=== PATIENT | male | born 1980 | race African-American/Black ===

== ENCOUNTER 2016-12-18 19:34 | Inpatient (IN) | payer OTHER ==
[~2016-12-18] VITALS: Ht 177.8 cm; Wt 97.5 kg
[2016-12-18] MEDS ORDERED: NKM (19:42)
--- NOTE | 2016-12-18 19:59 | Emergency Room Report ---
History of Present Illness General Chief Complaint: Constipation Source: Patient Present Illness HPI Patient presents with complaints of rectal pain and be unable to move his bowels for 5 days. He states he feels a bump near his rectum. He's had chills. The no documented fever but feels chills. He was straining a week ago to move his bowels. He started having the discomfort the day after which was 6 days ago. Pain has been 10/10, constant, not radiate. Makes it difficult to ambulate. Passed some blood per rectum = minimal. No dysuria. No URI sy, chest pain, SOB, rashes, joint pain, depression. Allergies: Coded Allergies: No Known Allergies (Unverified , 12/18/16) Patient History Past Medical History: see triage record Social History: Reports: smoking Social History Narrative working Reviewed Nursing Documentation: PMH: Agreed, PSxH: Agreed Nursing Documentation-PMH Past Medical History: No Stated History Review of Systems All Other Systems: negative except mentioned in HPI Physical Exam Vital Signs Date Time Temp Pulse Resp B/P Pulse Ox O2 Delivery O2 Flow Rate FiO2 12/18/16 19:39 98.2 100 18 147/82 96 Room Air Sp02 EP Interpretation: reviewed, normal General Appearance: well appearing, GCS 15, mild distress Head: normocephalic Eyes: bilateral eye PERRL, bilateral eye normal inspection ENT: moist mucus membranes Neck: supple Respiratory: lungs clear, normal breath sounds Cardiovascular #1: regular rate, rhythm Cardiovascular #2: 2+ radial (R) Gastrointestinal: normal inspection, normal bowel sounds, non tender, soft, no mass, non-distended Rectal: heme negative stool, other - fluctuant mass on side of rectum with some erythema - possible cyst Musculoskeletal: back normal, gait/station normal - walks with pain, normal range of motion Neurologic: alert, oriented x3, grossly normal Psychiatric: mood/affect normal Skin: normal inspection, warm/dry, other - tattoos and perirectal erythema Medical Decision Making Diagnostic Impression: Primary Impression: Perirectal abscess Additional Impressions: Polycythemia Hypokalemia Dehydration ER Course The patient presents with rectal pain and constipation. Differential includes hemorrhoids, constipation, rectal fissure, perirectal abscess amongst others. Evaluation will be with labs and CT the abdomen and pelvis. Patient will be treated with Toradol and also a antibiotics will be started. Labs significant for polycythemia, elevated C reactive protein. Call to Dr. Rae. Admit med Dr. West. Pain improved and able to move bowels scant amount. Laboratory Tests Test 12/18/16 20:08 White Blood Count 9.9 K/UL (4.8-10.8) Red Blood Count 5.70 M/UL (4.70-6.10) Hemoglobin 18.8 G/DL (14.2-18.0) *H Hematocrit 51.2 % (42.0-52.0) Mean Corpuscular Volume 90 FL (80-99) Mean Corpuscular Hemoglobin 33.0 PG (27.0-31.0) H Mean Corpuscular Hemoglobin Concent 36.7 G/DL (32.0-36.0) H Red Cell Distribution Width 11.5 % (11.6-14.8) L Platelet Count 206 K/UL (150-450) Mean Platelet Volume 9.6 FL (6.5-10.1) Neutrophils (%) (Auto) 64.7 % (45.0-75.0) Lymphocytes (%) (Auto) 26.7 % (20.0-45.0) Monocytes (%) (Auto) 6.4 % (1.0-10.0) Eosinophils (%) (Auto) 0.7 % (0.0-3.0) Basophils (%) (Auto) 1.4 % (0.0-2.0) Erythrocyte Sedimentation Rate 15 MM/HR (0-15) Prothrombin Time 11.0 SEC (9.30-11.50) Prothrombin Time INR 1.1 (0.9-1.1) PTT 26 SEC (23-33) Urine Color Yellow Urine Appearance Clear Urine pH 6.5 (4.5-8.0) Urine Specific [place] 1.015 (1.005-1.035) Urine Protein 2+ (NEGATIVE) H Urine Glucose (UA) Negative (NEGATIVE) Urine Ketones 4+ (NEGATIVE) H Urine Occult Blood 1+ (NEGATIVE) H Urine Nitrite Negative (NEGATIVE) Urine Bilirubin Negative (NEGATIVE) Urine Urobilinogen 1 MG/DL (0.0-1.0) H Urine Leukocyte Esterase Negative (NEGATIVE) Urine RBC 2-4 /HPF (0 - 0) H Urine WBC 2-4 /HPF (0 - 0) Urine Squamous Epithelial Cells None /LPF (NONE/OCC) Urine Bacteria Occasional /HPF (NONE) Sodium Level 138 mEQ/L (135-145) Potassium Level 3.0 mEQ/L (3.4-4.9) L Chloride Level 97 mEQ/L (98-107) L Carbon Dioxide Level 22 mEQ/L (20-30) Anion Gap 19 (5-15) H Blood Urea Nitrogen 9 mg/dL (7-23) Creatinine 1.2 mg/dL (0.7-1.2) Estimate Glomerular Filtration Rate > 60 mL/min (>60) Glucose Level 108 mg/dL (74-106) H Lactic Acid Level 1.40 mmol/L (0.66-2.22) Calcium Level 9.6 mg/dL (8.6-10.2) Total Bilirubin 0.4 mg/dL (0.0-1.2) Aspartate Amino Transferase (AST) 63 U/L (5-40) H Alanine Aminotransferase (ALT) 61 U/L (3-41) H Alkaline Phosphatase 74 U/L (40-129) C-Reactive Protein, Quantitative 1.9 mg/dL (< 0.5) H Total Protein 7.8 g/dL (6.6-8.7) Albumin 4.3 g/dL (3.5-5.2) Globulin 3.5 g/dL Albumin/Globulin Ratio 1.2 (1.0-2.7) Lipase 29 U/L (< 60) CT/MRI/US Diagnostic Results CT/MRI/US Diagnostic Results : Imaging Test Ordered: abd pelvis Impression Impression: No acute findings identified within the abdomen. Normal appendix. Apparent disc herniation at L4-5. MRI may be obtained as warranted clinically. Last Vital Signs Date Time Temp Pulse Resp B/P Pulse Ox O2 Delivery O2 Flow Rate FiO2 12/18/16 19:39 98.2 100 18 147/82 96 Room Air Status: improved Disposition: ADMITTED INPATIENT Condition: Serious Jamaal Crenshaw M.D. December 18, 2016 19:58
[2016-12-18] MEDS ORDERED: Ketorolac 30mg Inj IV ONE (20:00)
[2016-12-18] MEDS ORDERED: Lidocaine HCl 2% Jelly 5ml Tube TOPIC ONE (20:00)
[2016-12-18 20:25] LABS: BASOPHILS % (AUTO) 1.4 % (0.0-2.0); EOSINOPHILS % (AUTO) 0.7 % (0.0-3.0); LYMPHOCYTES % (AUTO) 26.7 % (20.0-45.0); MEAN CORPUSCULAR HGB CONC 36.7 G/DL (32.0-36.0); MEAN CORPUSCULAR VOLUME 90 FL (80-99); MEAN PLATELET VOLUME 9.6 FL (6.5-10.1); MONOCYTES % (AUTO) 6.4 % (1.0-10.0); NEUTROPHILS % (AUTO) 64.7 % (45.0-75.0); PLATELET COUNT 206 K/UL (150-450); RED CELL DISTRIBUTION WIDTH 11.5 % (11.6-14.8); WHITE BLOOD COUNT 9.9 K/UL (4.8-10.8)
[2016-12-18 20:28] LABS: APPEARANCE,URINE CLEAR; KETONES,URINE 4+ (NEGATIVE); LEUKOCYTE ESTERASE ,URINE NEGATIVE (NEGATIVE); NITRITE,URINE NEGATIVE (NEGATIVE); PH,URINE 6.5 (4.5-8.0); PROTEIN,URINE 2+ (NEGATIVE); UROBILINOGEN,URINE 1 MG/DL (0.0-1.0)
[2016-12-18 20:39] LABS: INR 1.1 (0.9-1.1)
[2016-12-18 20:42] LABS: ALANINE AMINOTRANSFERASE 61 U/L (3-41); ALBUMIN/GLOBULIN RATIO 1.2 (1.0-2.7); ANION GAP 19 (5-15); ASPARTATE AMINO TRANSFERASE 63 U/L (5-40); CALCIUM 9.6 mg/dL (8.6-10.2); CARBON DIOXIDE 22 mEQ/L (20-30); CHLORIDE 97 mEQ/L (98-107); CREATININE 1.2 mg/dL (0.7-1.2); GLOMERULAR FILTRATION RATE > 60 mL/min (>60); HEMOLYSIS 0; LIPASE 29 U/L (< 60); SODIUM 138 mEQ/L (135-145); TOTAL PROTEIN 7.8 g/dL (6.6-8.7)
[2016-12-18 20:59] LABS: BACTERIA,URINE OCCASIONAL /HPF
[2016-12-18 21:16] VITALS: BP 146/84
[2016-12-18] MEDS ORDERED: Vancomycin 1.5 GM in D5W 325 ML IVPB STA (21:34)
[2016-12-18 21:40] LABS: ERYTHROCYTE SEDIMENTATION RATE 15 MM/HR (0-15)
[2016-12-18] MEDS ORDERED: Cefepime 1gm vial ONE (21:43)
[2016-12-18] MEDS ORDERED: metroNIDAZOLE 500mg 100 ML IVPB ONE (21:45)
[2016-12-18] MEDS ORDERED: Cefepime HCl 1 GM in D5W 55 ML IVPB ONE (21:45)
[2016-12-18] MEDS ORDERED: Nitroglycerin Subl 0.4mg tab (Bottle Of 25) SL PRN (22:00)
[2016-12-18] MEDS ORDERED: Miralax 17gm pkt ORAL PRN (22:00)
[2016-12-18] MEDS ORDERED: DuoNeb 0.5-3(2.5)mg/3ml neb HHN PRN (22:00)
[2016-12-18] MEDS ORDERED: Vancomycin 1.5gm/D5W 300ml 325 ML IVPB ONE (22:30)
[2016-12-18] MEDS ORDERED: KCl 10% 40mEq/30ml liquid ORAL STA (22:31)
[2016-12-19] VITALS (14 sets, daily range): BP systolic 115–154; BP diastolic 68–92
[2016-12-19] MEDS: Morphine Sulfate 2mg/ml Inj IVP PRN ×3 (04:10→20:37)
[2016-12-19 07:14] LABS: BASOPHILS % (AUTO) 1.1 % (0.0-2.0); EOSINOPHILS % (AUTO) 1.5 % (0.0-3.0); LYMPHOCYTES % (AUTO) 25.8 % (20.0-45.0); MEAN CORPUSCULAR HEMOGLOBIN 30.7 PG (27.0-31.0); MEAN CORPUSCULAR HGB CONC 34.2 G/DL (32.0-36.0); MEAN CORPUSCULAR VOLUME 90 FL (80-99); MEAN PLATELET VOLUME 10.2 FL (6.5-10.1); MONOCYTES % (AUTO) 9.8 % (1.0-10.0); NEUTROPHILS % (AUTO) 61.8 % (45.0-75.0); PLATELET COUNT 191 K/UL (150-450); RED BLOOD COUNT 4.85 M/UL (4.70-6.10); RED CELL DISTRIBUTION WIDTH 11.7 % (11.6-14.8); WHITE BLOOD COUNT 6.8 K/UL (4.8-10.8)
[2016-12-19 07:23] LABS: ALANINE AMINOTRANSFERASE 55 U/L (3-41); ALBUMIN/GLOBULIN RATIO 1.1 (1.0-2.7); ANION GAP 15 (5-15); ASPARTATE AMINO TRANSFERASE 52 U/L (5-40); CALCIUM 8.5 mg/dL (8.6-10.2); CARBON DIOXIDE 21 mEQ/L (20-30); CHLORIDE 104 mEQ/L (98-107); CREATININE 1.1 mg/dL (0.7-1.2); GLOMERULAR FILTRATION RATE > 60 mL/min (>60); HEMOLYSIS 2; POTASSIUM 3.5 mEQ/L (3.4-4.9); SODIUM 140 mEQ/L (135-145); TOTAL PROTEIN 6.1 g/dL (6.6-8.7)
[2016-12-19] MEDS ORDERED: Vancomycin 1.5 GM in D5W 325 ML IVPB SCH (09:00)
[2016-12-19] MEDS ORDERED: Cefepime HCl 2 GM in D5W 110 ML IV SCH (09:00)
[2016-12-19] MEDS: Heparin 5000 units/ml inj SUBQ SCH ×2 (09:18→21:36)
--- NOTE | 2016-12-19 10:36 | Pre-Procedure Note/Attestation ---
Pre-Procedure Note/Attestation Complete Prior to Procedure Planned Procedure: not applicable Procedure Narrative: I & D of perirectal abscess Indications for Procedure Pre-Operative Diagnosis: Perirectal abscess Attestation I attest that I discussed the nature of the procedure; its benefits; risks and complications; and alternatives (and the risks and benefits of such alternatives ), prior to the procedure, with the patient (or the patient's legal inbound sales representative). I attest that, if there was a reasonable possibility of needing a blood transfusion, the patient (or the patient's legal inbound sales representative) was given the [facility] standardized written summary, pursuant to the [place] Blood Safety Act ([place] Health and Safety Code # 1645, as amended). I attest that I re-evaluated the patient just prior to the surgery and that there has been no change in the patient's H&P, except as documented below: JAVID RAY December 19, 2016 10:36
--- NOTE | 2016-12-19 12:09 | Diagnostic Imaging Report ---
Indication: Abdominal pain Technique: Continuous helical transaxial imaging of the abdomen and pelvis was obtained from the lung bases to the pubic symphysis during intravenous contrast administration. Coronal 2-D reformats were also obtained. Study obtained in a Siemens sensation [address] Total Dose length Product (DLP): [address] Dose Index Volume (CTDIvol): 18 mGy Comparison: None Findings: There is trace right pleural fluid demonstrated. The appendix is seen and appears normal. Small bowel is nondilated. Solid organs appear normal. There is no hydronephrosis. No free fluid or free air identified. Disc bulge or protrusion suspected at L4-5. MR may be obtained as warranted clinically. Impression: No acute findings identified within the abdomen. Normal appendix. Apparent disc herniation at L4-5. MRI may be obtained as warranted clinically. The CT scanner at [facility] is accredited by the [employer] and the scans are performed using protocols designed to limit radiation exposure to as low as reasonably achievable to attain images of sufficient resolution adequate for diagnostic evaluation.
--- NOTE | 2016-12-19 12:38 | Anethesia Preoperative Eval ---
Anesthesia Pre-op PMH/ROS General Date of Evaluation: December 19, 2016 Time of Evaluation: 12:35 Anesthesiologist: Kota ASA Score: ASA 2 Mallampati Score Class I : Soft palate, uvula, fauces, pillars visible Class II: Soft palate, uvula, fauces visible Class III: Soft palate, base of uvula visible Class IV: Only hard plate visible Mallampati Classification: Class II Surgeon: Kyra Diagnosis: Perirectal abscess Surgical Procedure: I&D of perirectal abscess Anesthesia History: none Social History: current smoker Family History: no anesthesia problems Allergies: Coded Allergies: No Known Allergies (Unverified , 12/18/16) Medications: see eMAR Past Medical History Cardiovascular: Denies: CAD, HTN, AL, arrhythmia, other, valve dz Pulmonary: Denies: COPD, HODA, asthma, other Gastrointestinal/Genitourinary: Reports: GERD - mild, Denies: CRI, ESRD, other Neurologic/Psychiatric: Denies: CVA, TIA, dementia, depression/anxiety, other Endocrine: Denies: DM, hypothyroidism, other, steroids HEENT: Denies: [place] (L), [place] (R), cataract (L), cataract (R), glaucoma, other Hematology/Immune: Denies: DVT, anemia, bleeding disorder, other Musculoskeletal/Integumentary: Denies: DDD, DJD, OA, RA, edema, other PMH Narrative: as above PSxH Narrative: None Anesthesia Pre-op Phys. Exam Physician Exam Last Vital Signs Date Time Temp Pulse Resp B/P Pulse Ox O2 Delivery O2 Flow Rate FiO2 12/19/16 11:37 97.9 65 19 128/83 96 Room Air 12/19/16 09:21 21 Constitutional: NAD Neurologic: CN 2-12 intact Cardiovascular: RRR, no M/R/G Respiratory: CTA Gastrointestinal: S/NT/ND Airway Exam MO: full Neck: flexible ROM: full Teeth: intact Dentures: no lower, no upper Anesthesia Pre-op A/P Labs Hematology Test 12/18/16 20:08 12/19/16 05:50 White Blood Count 9.9 K/UL (4.8-10.8) 6.8 K/UL (4.8-10.8) Red Blood Count 5.70 M/UL (4.70-6.10) 4.85 M/UL (4.70-6.10) Hemoglobin 18.8 G/DL (14.2-18.0) *H 14.9 G/DL (14.2-18.0) Hematocrit 51.2 % (42.0-52.0) 43.5 % (42.0-52.0) Mean Corpuscular Volume 90 FL (80-99) 90 FL (80-99) Mean Corpuscular Hemoglobin 33.0 PG (27.0-31.0) H 30.7 PG (27.0-31.0) Mean Corpuscular Hemoglobin Concent 36.7 G/DL (32.0-36.0) H 34.2 G/DL (32.0-36.0) Red Cell Distribution Width 11.5 % (11.6-14.8) L 11.7 % (11.6-14.8) Platelet Count 206 K/UL (150-450) 191 K/UL (150-450) Mean Platelet Volume 9.6 FL (6.5-10.1) 10.2 FL (6.5-10.1) H Neutrophils (%) (Auto) 64.7 % (45.0-75.0) 61.8 % (45.0-75.0) Lymphocytes (%) (Auto) 26.7 % (20.0-45.0) 25.8 % (20.0-45.0) Monocytes (%) (Auto) 6.4 % (1.0-10.0) 9.8 % (1.0-10.0) Eosinophils (%) (Auto) 0.7 % (0.0-3.0) 1.5 % (0.0-3.0) Basophils (%) (Auto) 1.4 % (0.0-2.0) 1.1 % (0.0-2.0) Erythrocyte Sedimentation Rate 15 MM/HR (0-15) Coagulation Test 12/18/16 20:08 Prothrombin Time 11.0 SEC (9.30-11.50) Prothromb Time International Ratio 1.1 (0.9-1.1) Activated Partial Thromboplast Time 26 SEC (23-33) Chemistry Test 12/18/16 20:08 12/19/16 05:50 Sodium Level 138 mEQ/L (135-145) 140 mEQ/L (135-145) Potassium Level 3.0 mEQ/L (3.4-4.9) L 3.5 mEQ/L (3.4-4.9) Chloride Level 97 mEQ/L (98-107) L 104 mEQ/L (98-107) Carbon Dioxide Level 22 mEQ/L (20-30) 21 mEQ/L (20-30) Anion Gap 19 (5-15) H 15 (5-15) Blood Urea Nitrogen 9 mg/dL (7-23) 9 mg/dL (7-23) Creatinine 1.2 mg/dL (0.7-1.2) 1.1 mg/dL (0.7-1.2) Estimat Glomerular Filtration Rate > 60 mL/min (>60) > 60 mL/min (>60) Glucose Level 108 mg/dL (74-106) H 94 mg/dL (74-106) Lactic Acid Level 1.40 mmol/L (0.66-2.22) Calcium Level 9.6 mg/dL (8.6-10.2) 8.5 mg/dL (8.6-10.2) L Total Bilirubin 0.4 mg/dL (0.0-1.2) 0.3 mg/dL (0.0-1.2) Aspartate Amino Transf (AST/SGOT) 63 U/L (5-40) H 52 U/L (5-40) H Alanine Aminotransferase (ALT/SGPT) 61 U/L (3-41) H 55 U/L (3-41) H Alkaline Phosphatase 74 U/L (40-129) 65 U/L (40-129) C-Reactive Protein, Quantitative 1.9 mg/dL (< 0.5) H Total Protein 7.8 g/dL (6.6-8.7) 6.1 g/dL (6.6-8.7) L Albumin 4.3 g/dL (3.5-5.2) 3.3 g/dL (3.5-5.2) L Globulin 3.5 g/dL 2.8 g/dL Albumin/Globulin Ratio 1.2 (1.0-2.7) 1.1 (1.0-2.7) Lipase 29 U/L (< 60) Risk Assessment & Plan Assessment: ASA 2 Plan: GA with LMA Status Change Before Surgery: No Pre-Antibiotics Drug: Ancef 2gr. Given Within 1 Hr of Incision: Yes Time Given: 12:38 SEMAJ SON M.D. December 19, 2016 12:38
[2016-12-19] MEDS ORDERED: Propofol 10mg/ml 20ml IV ONE ×2 (12:43→12:45)
[2016-12-19] MEDS ORDERED: NS Irrig 1000ml ONE (12:45)
[2016-12-19] MEDS ORDERED: Midazolam 2mg/2ml Inj ONE (12:45)
[2016-12-19] MEDS ORDERED: fentaNYL 100 mcg/2 mL IV ONE (12:45)
[2016-12-19] MEDS ORDERED: LR 1000ml ONE (12:45)
[2016-12-19] MEDS ORDERED: Ketorolac 30mg Inj ONE (12:45)
[2016-12-19] MEDS ORDERED: Sterile Water Irrig 1000ml IRRIG ONE (12:45)
[2016-12-19] MEDS ORDERED: Bupivacaine w/Epi 0.25% 30ml Vial INJ ONE (13:13)
[2016-12-19] MEDS ORDERED: NS Irrig 1000ml IRRIG ONE (13:16)
--- NOTE | 2016-12-19 13:22 | Brief Operative Note ---
Immediate Post Operative Note Operative Note Pre-op Diagnosis: Perirectal abscess Post-op Diagnosis: moira-rectal abscess with fistula Findings: consistent w/pre-op dx studies Surgeon: MD Kayleigh Power Ballast Machine Operator: none Anesthesiologist: Dr. Escudero Anesthesia: general Specimen: none Complications: none Condition: stable Estimated Blood Loss: minimal Drains: other - xeroform Implant(s) used?: No JAVID RAY December 19, 2016 13:22
[2016-12-19] MEDS ORDERED: Meperidine 25mg/0.5ml Inj ONE (13:31)
[2016-12-19] MEDS ORDERED: LR 1000ml 1,000 ML IVLG SCH (13:40)
[2016-12-19] MEDS ORDERED: Midazolam 2mg/2ml Inj IVP PRN (13:45)
[2016-12-19] MEDS ORDERED: Meperidine 25mg/0.5ml Inj IV PRN (13:45)
[2016-12-19] MEDS ORDERED: DiphenhydrAMINE 50mg/ml Inj IVP PRN (13:45)
[2016-12-19] MEDS ORDERED: Hydromorphone 0.5mg/0.5ml inj IVP PRN (13:45)
[2016-12-19] MEDS ORDERED: Ketorolac 30mg Inj IV PRN (13:45)
--- NOTE | 2016-12-19 13:46 | Immediate Post-Op Evaluation ---
Immediate Post-Op Evalulation Immediate Post-Op Evalulation Procedure: I&D perirectal abscess Date of Evaluation: December 19, 2016 Time of Evaluation: 13:44 IV Fluids: 600 Blood Products: none Estimated Blood Loss: min Urinary Output: none Blood Pressure Systolic: 132 Blood Pressure Diastolic: 74 Pulse Rate: 78 Respiratory Rate: 20 O2 Sat by Pulse Oximetry: 98 Temperature (Fahrenheit): 97.4 Pain Score (1-10): 2 Nausea: No Vomiting: No Complications none Patient Status: awake, patent, none Hydration Status: adequate SEMAJ SON M.D. December 19, 2016 13:46
--- NOTE | 2016-12-19 13:47 | 48 Hour Post Anesthesia Eval ---
Post Anesthesia Evaluation Procedure: I&D perirectal abscess Date of Evaluation: December 19, 2016 Time of Evaluation: 15:30 Blood Pressure Systolic: 128 0: 76 Pulse Rate: 82 Respiratory Rate: 20 Temperature (Fahrenheit): 97.6 O2 Sat by Pulse Oximetry: 98 Airway: patent Nausea: No Vomiting: No Pain Intensity: 2 Hydration Status: adequate Cardiopulmonary Status: stable Mental Status/LOC: patient returned to baseline Follow-up Care/Observations: n/a Post-Anesthesia Complications: none Follow-up care needed: N/A SEMAJ SON M.D. December 19, 2016 13:47
[2016-12-19] MEDS ORDERED: D5 1/2NS w/KCl 20mEq 1,000 ML IV SCH (14:00)
[2016-12-19] MEDS ORDERED: Norco 5mg/325mg tab ORAL PRN (14:00)
[2016-12-19] MEDS: Piperacillin/Tazobactam 3.375 GM in D5W 110 ML IVPB SCH ×2 (14:57→21:36)
--- NOTE | 2016-12-19 16:08 | Pre-op HX & Phy Repo 2 SIG ---
DATE OF ADMISSION: 12/18/2016 REQUESTING PHYSICIAN: Ermelinda West M.D. REASON FOR CONSULTATION: Pain and swelling at the perirectal area. HISTORY OF PRESENT ILLNESS: This is a 36-year-old male, who presented to emergency room complaining of pain and swelling at the left side of the rectum for about one week. He stated that it has gradually increased and that he has been having pain with bowel movement. Apparently last night, it has spontaneously drained. He denies any fever or chills. He denied diabetes. PAST MEDICAL HISTORY: He denies allergies, asthma, diabetes, hypertension, and cardiac or renal diseases. PAST SURGICAL HISTORY: None. MEDICATIONS: None. SOCIAL HISTORY: This is a 36-year-old male, who is single with three children. He is unemployed and smokes one pack of cigarettes a day and drinks occasionally. REVIEW OF SYSTEMS: Noncontributory. PHYSICAL EXAMINATION: GENERAL: The patient appeared to be well developed and well nourished, 36-year-old male, in no acute distress. HEENT: Head is normocephalic and atraumatic. Eyes, pupils are equal, round, and reactive to light. Mouth is clear. NECK: There is no palpable thyromegaly or adenopathy. CHEST: Clear to auscultation and percussion. HEART: There is no gallop or murmur. S1 and S2 are within normal limits. ABDOMEN: Soft, flat, and nontender. EXTREMITIES: Within normal limits. PERINEUM: He has perirectal abscess on the left posterior to the anus. ASSESSMENT: Perirectal abscess. PLAN: The patient has been scheduled for incision and drainage of the perirectal abscess. The risks and benefits have been explained to him, especially that he has been notified that he will have a large wound next to his anus, which he had to take care of it till it closes. Besides, he has been notified about the chance of the [id number]. He understood and granted consent. Lilian Rae M.D. DR: JT JOB#: [id number] CC: SHAINA
[2016-12-19] MEDS: Docusate 100mg cap ORAL SCH (17:43)
--- NOTE | 2016-12-19 20:08 | Operative Note - Dictated ---
DATE OF OPERATION: 12/19/2016 PREOPERATIVE DIAGNOSIS: Perirectal abscess. POSTOPERATIVE DIAGNOSIS: Perirectal abscess with fistula. OPERATION: Incision and drainage of the abscess and fistulotomy. COMPLICATIONS: None. SURGEON: Lilian Rae M.D. WATERSHED ENGINEER: None. ANESTHESIA: General with laryngeal mask. ANESTHESIOLOGIST: Jefferson Escudero M.D. INDICATION: This is a 36-year-old male who presented with pain and swelling at the perirectal area for about six to seven days. He stated that last night he noticed some drainage on his underwear and the pain improved. Physical examination showed perirectal abscess, left and posterior to the anus. DESCRIPTION OF PROCEDURE: The patient was placed supine on the operating table and after general anesthesia with laryngeal mask, he was placed in the lithotomy position and the perineum was properly prepped and draped. Exploration of the perineum was performed which showed a perirectal abscess which did not seem to contain any pus. Abscess was incised and exploration was performed. The abscess had the large cavity under the skin and there was a connection from this cavity to the inside of the anal canal. The cavity was unroofed and the patient already had the fistula. The fistulotomy was performed too. The bleeding points were controlled and the area was irrigated with normal saline. Xeroform was placed in the anal canal and was brought out from the anus. The anus was blocked with infiltration of 5 mL of Marcaine in each quarter of the perirectal area. The patient tolerated the procedure very well and was transferred to recovery room in stable condition and extubated. The sponge and needle count correct. Estimated blood loss was about 5 mL. Condition of the patient at the end of procedure is stable. Lilian Rae M.D. DR: Paula JOB#: [id number] CC:
[2016-12-19] MEDS ORDERED: Zolpidem 5mg tab ORAL PRN (21:00)
--- NOTE | 2016-12-19 22:05 | History and Physical ---
History of Present Illness General Date patient seen: December 19, 2016 Reason for Hospitalization: Constipation Present Illness Allergies: Coded Allergies: No Known Allergies (Unverified , 12/18/16) Medication History Scheduled No Known Medications* (NKM - No Known Medications*), 0 ., (Reported) Patient History Healthcare decision maker NONE Resuscitation status Full Code Advanced Directive on File Physical Exam Last 24 Hour Vital Signs Date Time Temp Pulse Resp B/P Pulse Ox O2 Delivery O2 Flow Rate FiO2 12/19/16 20:00 98.1 69 20 129/76 96 Room Air 12/19/16 15:52 98.2 59 19 143/68 97 Room Air 12/19/16 14:57 62 19 138/89 99 Room Air 12/19/16 14:42 97.2 52 18 136/76 100 Room Air 12/19/16 14:30 97.0 77 18 135/83 98 Room Air 12/19/16 14:23 97.0 12/19/16 14:19 97.0 12/19/16 14:15 76 19 154/85 98 Room Air 12/19/16 14:03 75 19 133/88 98 Room Air 12/19/16 13:53 74 18 115/72 98 Room Air 12/19/16 13:47 82 20 98 12/19/16 13:46 78 20 98 12/19/16 13:43 75 17 133/68 99 Simple Mask 6.0 12/19/16 13:38 80 17 132/75 99 Simple Mask 6.0 12/19/16 13:33 97.0 84 18 132/89 99 Simple Mask 6.0 12/19/16 11:37 97.9 65 19 128/83 96 Room Air 12/19/16 09:46 97.7 12/19/16 09:21 97 Room Air 21 12/19/16 08:15 97.7 63 19 137/80 97 Room Air 12/19/16 04:00 97.9 59 20 137/92 96 Room Air 12/18/16 22:52 98.2 59 14 146/84 98 Room Air Intake and Output 12/18/16 12/19/16 19:00 07:00 Intake Total 2500 ml Balance 2500 ml IV Total 2500 ml # Voids 3 Laboratory Tests Test 12/19/16 05:50 White Blood Count 6.8 K/UL (4.8-10.8) Red Blood Count 4.85 M/UL (4.70-6.10) Hemoglobin 14.9 G/DL (14.2-18.0) Hematocrit 43.5 % (42.0-52.0) Mean Corpuscular Volume 90 FL (80-99) Mean Corpuscular Hemoglobin 30.7 PG (27.0-31.0) Mean Corpuscular Hemoglobin Concent 34.2 G/DL (32.0-36.0) Red Cell Distribution Width 11.7 % (11.6-14.8) Platelet Count 191 K/UL (150-450) Mean Platelet Volume 10.2 FL (6.5-10.1) H Neutrophils (%) (Auto) 61.8 % (45.0-75.0) Lymphocytes (%) (Auto) 25.8 % (20.0-45.0) Monocytes (%) (Auto) 9.8 % (1.0-10.0) Eosinophils (%) (Auto) 1.5 % (0.0-3.0) Basophils (%) (Auto) 1.1 % (0.0-2.0) Sodium Level 140 mEQ/L (135-145) Potassium Level 3.5 mEQ/L (3.4-4.9) Chloride Level 104 mEQ/L (98-107) Carbon Dioxide Level 21 mEQ/L (20-30) Anion Gap 15 (5-15) Blood Urea Nitrogen 9 mg/dL (7-23) Creatinine 1.1 mg/dL (0.7-1.2) Estimat Glomerular Filtration Rate > 60 mL/min (>60) Glucose Level 94 mg/dL (74-106) Calcium Level 8.5 mg/dL (8.6-10.2) L Total Bilirubin 0.3 mg/dL (0.0-1.2) Aspartate Amino Transf (AST/SGOT) 52 U/L (5-40) H Alanine Aminotransferase (ALT/SGPT) 55 U/L (3-41) H Alkaline Phosphatase 65 U/L (40-129) Total Protein 6.1 g/dL (6.6-8.7) L Albumin 3.3 g/dL (3.5-5.2) L Globulin 2.8 g/dL Albumin/Globulin Ratio 1.1 (1.0-2.7) Height (Feet): 5 Height (Inches): 10.00 Weight (Pounds): 215 Medications Current Medications Medications (Trade) Dose Ordered Sig/Flaco Route PRN Reason Start Time Stop Time Status Last Admin Dose Admin Acetaminophen (Tylenol) 650 mg Q4H PRN ORAL T>100.5 12/18/16 22:00 01/17/17 21:59 Acetaminophen (Tylenol) 650 mg Q6H PRN ORAL Mild Pain (Pain Scale 1-3) 12/19/16 14:00 01/18/17 13:59 Acetaminophen/ Hydrocodone Bitart ([place] 5/325) 1 tab Q4H PRN ORAL Moderate Pain (Pain Scale 4-6) 12/19/16 14:00 12/26/16 13:59 Albuterol/ Ipratropium (DuoNeb 0.5-3(2.5)mg/3ml) 3 ml Q4H PRN HHN Shortness of Breath 12/18/16 22:00 12/23/16 21:59 Dextrose/ Electrolytes (D5 0.45%NS W/ KCl 20mEq) 1,000 ml @ 0 mls/hr Q0M IV 12/19/16 14:00 01/18/17 13:59 Docusate Sodium (Colace) 100 mg TWICE A DAY ORAL 12/19/16 18:00 01/18/17 17:59 12/19/16 17:43 Heparin Sodium (Porcine) (Heparin 5000 units/ml) 5,000 units EVERY 12 HOURS SUBQ 12/19/16 09:00 01/18/17 08:59 12/19/16 21:36 Morphine Sulfate (Morphine Sulfate) 2 mg Q4H PRN IVP Moderate Pain (Pain Scale 4-6) 12/18/16 22:00 12/25/16 21:59 12/19/16 20:37 Nitroglycerin 0.4 mg 0.4 mg Q5MIN X 3 DOSES PRN SL Prn Chest Pain 12/18/16 22:00 01/17/17 21:59 Ondansetron HCl (Zofran) 4 mg Q6H PRN IVP Nausea & Vomiting 12/19/16 14:00 01/18/17 13:59 Piperacillin Sod/ Tazobactam Sod/ Dextrose (Zosyn/D5W) 110 ml @ 27.5 mls/hr EVERY 8 HOURS IVPB 12/19/16 14:00 12/24/16 13:59 12/19/16 21:36 Polyethylene Glycol (Miralax) 17 gm DAILYPRN PRN ORAL Constipation 12/18/16 22:00 01/17/17 21:59 Temazepam (Restoril) 15 mg HSPRN PRN ORAL Insomnia 12/18/16 22:00 12/25/16 21:59 Zolpidem Tartrate 5 mg 5 mg DAILYPRN PRN ORAL Insomnia 12/19/16 21:00 01/18/17 20:59 CARLOS BONILLA December 19, 2016 22:05
[2016-12-20] VITALS: BP 129/84
[2016-12-20 04:00] VITALS: BP 133/82
[2016-12-20] MEDS: Morphine Sulfate 2mg/ml Inj IVP PRN ×3 (04:20→13:27)
[2016-12-20] MEDS: Piperacillin/Tazobactam 3.375 GM in D5W 110 ML IVPB SCH ×2 (06:10→13:26)
[2016-12-20 07:42] VITALS: BP 121/55
[2016-12-20] MEDS: Docusate 100mg cap ORAL SCH ×2 (08:53→17:44)
[2016-12-20] MEDS: Heparin 5000 units/ml inj SUBQ SCH (08:55)
[2016-12-20 11:29] VITALS: BP 152/86
--- NOTE | 2016-12-20 15:38 | General Surgery Progress Note ---
General Surgery-Progress Note Subjective Symptoms: improved Objective Last 24 Hour Vital Signs Date Time Temp Pulse Resp B/P Pulse Ox O2 Delivery O2 Flow Rate FiO2 12/20/16 13:57 97.6 12/20/16 11:29 97.6 62 18 152/86 98 Room Air 12/20/16 09:25 96 Room Air 21 12/20/16 07:42 97.9 63 19 121/55 97 Room Air 12/20/16 04:00 98.2 76 19 133/82 96 Room Air 12/20/16 00:00 98.1 73 17 129/84 97 Room Air 12/19/16 20:00 98.1 69 20 129/76 96 Room Air 12/19/16 15:52 98.2 59 19 143/68 97 Room Air I&O Intake and Output 12/19/16 12/20/16 19:00 07:00 Intake Total 2145.000 ml 390.0 ml Balance 2145.000 ml 390.0 ml Intake Oral 400 ml 280 ml IV Total 1745.000 ml 110.0 ml # Voids 3 2 # Bowel Movements 1 Respiratory: clear Abdomen: soft, flat, non-tender Laboratory Tests Test 12/20/16 08:40 Vancomycin Level Trough < 2.0 ug/mL (5.0-12.0) L Assessment Post-op Diagnosis moira-rectal abscess with fistula Plan Additional Comments can be discharged JAVID RAY December 20, 2016 15:38
[2016-12-20 15:40] VITALS: BP 124/74
[2016-12-20] MEDS ORDERED: Tubing IV Secondary IV ONE (16:02)
[2016-12-20] MEDS ORDERED: TRAMADOL HCL50 MG ORAL (18:01)
[2016-12-20] MEDS ORDERED: CIPRO500 MG/51 PO (18:02)
[2016-12-20] MEDS ORDERED: Piperacillin/Tazobactam 3.375 GM in NS 110 ML IVPB SCH (22:00)
--- NOTE | 2016-12-20 23:06 | Pulmonology Progress Note ---
Subjective Allergies: Coded Allergies: No Known Allergies (Unverified , 12/18/16) Objective Last 24 Hour Vital Signs Date Time Temp Pulse Resp B/P Pulse Ox O2 Delivery O2 Flow Rate FiO2 12/20/16 15:40 97.8 66 18 124/74 97 Room Air 12/20/16 13:57 97.6 12/20/16 11:29 97.6 62 18 152/86 98 Room Air 12/20/16 09:25 96 Room Air 21 12/20/16 07:42 97.9 63 19 121/55 97 Room Air 12/20/16 04:00 98.2 76 19 133/82 96 Room Air 12/20/16 00:00 98.1 73 17 129/84 97 Room Air Intake and Output 12/19/16 12/20/16 19:00 07:00 Intake Total 2145.000 ml 390.0 ml Balance 2145.000 ml 390.0 ml Intake Oral 400 ml 280 ml IV Total 1745.000 ml 110.0 ml # Voids 3 2 # Bowel Movements 1 Microbiology Date/Time Source Procedure Growth Status 12/19/16 12:00 Wound Gram Stain - Final Resulted 12/19/16 12:00 Wound Aerobic Culture Pending Resulted 12/19/16 12:00 Wound Anaerobic Culture Pending Resulted Laboratory Tests 12/20/16 08:40: Vancomycin Level Trough < 2.0L CARLOS BONILLA December 20, 2016 23:06
--- NOTE | 2016-12-22 09:46 | Discharge Summary ---
Discharge Summary Hospital Course Date of Admission December 18, 2016 at 20:15 Date of Discharge December 20, 2016 at 18:43 Admitting Diagnosis perirectal abscess HPI Corey Ley is a 36 year old male who was admitted on December 18, 2016 at 20:15 for Perirectal Abscess Hospital Course dc summary #[id number] Discharge Medications Continued Medications: Ciprofloxacin (Cipro) 500 Mg/5 Ml Susu.mc.rec 500 MG PO EVERY 12 HOURS, #10 Tramadol Hcl* (Ultram*) 50 Mg Tablet 50 MG ORAL Q4HR PRN for For Pain, #30 TAB 0 Refills Discharge Condition Upon Discharge: stable Discharge Disposition Patient was discharged to Home (01) Discharge Diagnoses: Discharge Instructions Discharge Instructions Special Instructions I have been assigned to complete a D/C Summary on this account. I was not involved in the patient management Mely Worthington NP (Vanchtein) December 22, 2016 09:46
--- NOTE | 2016-12-23 01:29 | Discharge Summary 2 SIG ---
DATE OF ADMISSION: 12/18/2016 DATE OF DISCHARGE: 12/20/2016 REASON FOR ADMISSION: 36-year-old male presented to the emergency room with a complaint of rectal pain. The patient was unable to move his bowels for five days. He felt a bump near his rectum. He had chills. According to the patient, he was straining a week ago to move his bowels. He started to have discomfort the next day. Pain was 10/10, constant, nonradiating, and made it difficult to ambulate. He passed some minimal amount of blood per rectum. No dysuria. No chest pain. No shortness of breath. No joint pain. Workup in the emergency room revealed that the patient was afebrile and normotensive. White blood count - 9.9. Lactic acid within normal limits. Potassium - 3.0. Hemoglobin-18.8 and hematocrit -50.1; BUN- 9 and creatinine- 1.2. The patient undergone CT of the abdomen and pelvis in the emergency room, which revealed no acute findings, but physical examination revealed a fluctuant mass on the side of the rectum with some erythema. The patient was admitted for further management. Surgery consult was requested. ADMITTING DIAGNOSES: 1. Perirectal abscess. 2. Dehydration. 3. Hypokalemia. HOSPITAL COURSE: The patient was admitted. The patient was started on empiric antibiotics. Potassium was replaced. Surgery consult was requested. Surgeon explained to the patient that the patient needs incision and drainage of the perirectal abscess. The patient agreed to procedure. Subsequently, the patient undergone incision and drainage of perirectal abscess with fistulotomy , since it was found that the abscess had already existing fistula. Course of recovery was uneventful. Pain management provided. Discomfort diminished after surgery. The patient was able to tolerate diet. Bowel regimen instituted to ensure soft bowel movement. The patient was stable for discharge home. Prescription for antibiotics provided. DISCHARGE DIAGNOSES: 1. Perirectal abscess with fistula. 2. Dehydration, -resolved. 3. Hypokalemia- resolved. 4. Status post incision and drainage of perirectal abscess and fistulotomy. DISCHARGE MEDICATIONS: See medication reconciliation list. DISCHARGE INSTRUCTIONS: The patient was discharged home. Follow up with the surgeon. Ermelinda West M.D. I have been assigned to dictate discharge summary on this account and I was not involved in the patient's management. Mely Worthington (Vanchtein) NXiaoPXiao DR: BALDEV JOB#: [id number] CC: SHAINA
== END 2016-12-20 18:43 | disposition home or self-care (01) | DRG 346 ==
LOC: EMR 19:58 → 4E 20:15 → EDBEDREQ 20:31
DX: K61.1 Rectal abscess (principal); E86.0 Dehydration; E87.6 Hypokalemia
CPT/HCPCS: 36415; 74177; 80053; 80202; 81003; 83605; 83690; 85025; 85610; 85651; 85730; 86140; 86850; 86900; 86901; 87070; 87075; 87181; 87205; 94003; 94150; 94760; J2180; J2250; J2405

== ENCOUNTER 2018-07-09 08:49 | Emergency (ER) | payer OTHER ==
[~2018-07-09] VITALS: Ht 177.8 cm; Wt 90.3 kg
[~2018-07-09 08:49] MED LIST: CIPRO500 MG/51 PO; NKM; TRAMADOL HCL50 MG ORAL
[2018-07-09 09:02] VITALS: BP 124/101
[2018-07-09] MEDS ORDERED: Ketorolac 30mg Inj IM ONE (09:30)
[2018-07-09] MEDS ORDERED: Methocarbamol 750mg tab ORAL ONE (09:30)
[2018-07-09] MEDS ORDERED: IBUPROFEN600 MG ORAL (10:36)
[2018-07-09] MEDS ORDERED: ROBAXIN-750750 MG PO (10:36)
[2018-07-09] MEDS ORDERED: LIDODERM700 M1 TOPIC (10:36)
[2018-07-09 10:47] VITALS: BP 124/101
--- NOTE | 2018-07-09 11:10 | Emergency Room Report ---
History of Present Illness General Chief Complaint: Back Pain-No Injury Source: Patient Present Illness HPI 38-year-old male presents ED for evaluation. Complaining of lower back pain radiating down the left leg 6 months. States that pain is getting worse we came to ED for evaluation. Throbbing, 8 out of 10, radiating. Denies weakness in the leg. Denies bowel or bladder incontinence. Denies any injury or fall to explain the pain. 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 No other aggravating relieving factors. Denies any other associated symptoms Allergies: Coded Allergies: No Known Allergies (Unverified , 12/18/16) Patient History Past Medical History: none Past Surgical History: none Pertinent Family History: none Social History: Denies: smoking, alcohol use, drug use Immunizations: UTD Reviewed Nursing Documentation: PMH: Agreed; PSxH: Agreed Nursing Documentation-PMH Past Medical History: No History, Except For Hx Cardiac Problems: No Hx Cancer: No Hx Gastrointestinal Problems: No Hx Neurological Problems: No Review of Systems All Other Systems: negative except mentioned in HPI Physical Exam Vital Signs Date Time Temp Pulse Resp B/P (MAP) Pulse Ox O2 Delivery O2 Flow Rate FiO2 07/09/18 08:50 97.5 71 18 147/90 98 Room Air Sp02 EP Interpretation: reviewed, normal General Appearance: no apparent distress, alert, GCS 15, non-toxic Head: normocephalic Eyes: bilateral eye normal inspection, bilateral eye PERRL ENT: normal ENT inspection Neck: normal inspection Respiratory: normal inspection Cardiovascular #1: normal inspection Gastrointestinal: normal inspection Rectal: deferred Genitourinary: no CVA tenderness Musculoskeletal: tender - paraspinal lumbar tenderness Neurologic: alert, oriented x3, responsive, motor strength/tone normal, sensory intact, speech normal Psychiatric: normal inspection Skin: normal inspection Lymphatic: normal inspection Medical Decision Making Diagnostic Impression: Primary Impression: Back pain Qualified Codes: M54.42 - Lumbago with sciatica, left side ER Course Hospital Course 38 yo M presents to ED c/o lower back pain x 6-7 months Differential diagnoses include: Fracture, dislocation, sprain, contusion Clinical course Patient placed on stretcher. After initial history and physical, I ordered pain medications and Xrays of L spine Xrays prelim read shows no acute fracture/dislocation. On reassessment pain improved. Clinical presentation consistent with muscle strain versus sciatica. No focal neurological deficits. Discussed findings with patient. We will discharge with analgesics, muscle relaxers, Lidoderm patch. We'll provide orthopedic and PMD referrals Diagnosis - back pain Stable and discharged to home with prescription for Motrin, robaxin, lidoderm. weight bear as tolerated. Followup with PMD. Return to ED if symptoms recur or worsen Other X-Ray Diagnostic Results Other X-Ray Diagnostic Results : X-Ray ordered: L spine # of Views/Limited Vs Complete: 3 View Indication: Pain EP Interpretation: Yes Interpretation: no dislocation, no soft tissue swelling, no fractures Last Vital Signs Date Time Temp Pulse Resp B/P (MAP) Pulse Ox O2 Delivery O2 Flow Rate FiO2 07/09/18 10:47 97.5 65 16 124/101 98 Room Air Status: improved Disposition: HOME, SELF-CARE Condition: Stable Scripts Lidocaine (Lidoderm) 1 Each Adh..patch 1 PATCH TOPIC DAILY, #7 PATCH 0 Refills Patch(es) may remain in place for up to 12 hours in any 24-hour period. Prov: Dilip Faust MD 07/09/18 Methocarbamol* (ROBAXIN-750*) 750 Mg Tablet 750 MG PO TID, #21 TAB 0 Refills Prov: Dilip Faust MD 07/09/18 Ibuprofen* (MOTRIN*) 600 Mg Tablet 600 MG ORAL Q8H PRN for For Pain, #30 TAB 0 Refills Prov: Dilip Faust MD 07/09/18 Referrals: [facility] Lois Griffin [facility] Departure Forms: Return to Work Return to Work Date: Jul 13, 2018 Work Restrictions: No Heavy Lifting Patient Instructions: Back Pain, Adult Dilip Faust MD Jul 09, 2018 11:10
--- NOTE | 2018-07-09 11:40 | Diagnostic Imaging Report ---
EXAM: XR Lumbar Spine, 2 or 3 Views CLINICAL HISTORY: BK PAIN TECHNIQUE: Frontal and lateral views of the lumbar spine. COMPARISON: No relevant prior studies available. FINDINGS: Vertebrae: Unremarkable. 5 [id number]-[id number] lumbar vertebral segments are noted. Lumbar vertebral body heights are preserved. No visible fracture. Normal alignment. Disc spaces: Minimal degenerative disc space loss, most prominent at L4-5 and L5-S1. Soft tissues: Subcentimeter radiodense phleboliths in the pelvis bilaterally. IMPRESSION: Minimal degenerative disc space loss, most prominent at L4-5 and L5-S1.
== END 2018-07-09 10:47 | disposition home or self-care (01) ==
LOC: EMR 09:16
DX: M54.42 Lumbago with sciatica, left side (principal)
CPT/HCPCS: 72020; 96372; 99283; J1885